=== PATIENT | female | born 1985 | race Caucasian/White ===

== ENCOUNTER 2017-07-02 11:06 | Emergency (ER) | payer SELFPAY ==
[~2017-07-02] VITALS: Ht 165.1 cm; Wt 65.0 kg
[~2017-07-02 11:06] MED LIST: FOLI1TAB PO; VALP250S12 PO
[2017-07-02 11:14] VITALS: BP 164/87; PULSE 96; RESP 20; TEMP 98.3; O2SAT 99
[2017-07-02] MEDS ORDERED: VALP250S2 PO (11:23)
[2017-07-02] MEDS ORDERED: IBUP1TAB7 PO (11:29)
[2017-07-02] MEDS ORDERED: TRAM50 PO (11:29)
[2017-07-02] MEDS ORDERED: PERI0.126 SWISH-SPIT (11:29)
[2017-07-02] MEDS ORDERED: PENI500T PO (11:29)
--- NOTE | 2017-07-02 11:29 | PD ---
HPI Chief Complaint: Oral / Dental Pain or Problem Time Seen by Provider: 11:18 Travel History International Travel<30 days: No Contact w/Intl Traveler<30days: No Traveled to known affect area: No History of Present Illness HPI 32-year-old female presents emergency department for evaluation of tooth pain associated with her right mandibular third molar. Pain is severe, constant, throbbing. Patient has had a large dental carry in this area for many years, and has gotten larger. There is swelling around the tooth and it is painful. She believes she has an abscess which she has had in the past. Denies any trauma. No fever or chills. She has no other symptoms to report. PFSH Past Medical History Cancer: No Cardiovascular Problems: No Diminished Hearing: No Endocrine: No Genitourinary: No Immune Disorder: No Musculoskeletal: No Neurologic: No Psychiatric: No Reproductive: No Seizures: Yes Tetanus Vaccination: < 5 Years ?: Not Menopausal: No Past Surgical History Cholecystectomy: Yes Neurologic Surgery: Yes (CYSYTS REMOVED) Social History Alcohol Use: No Tobacco Use: No Substance Use: No Allergies-Medications (Allergen,Severity, Reaction): Coded Allergies: grass pollen (Unverified Allergy, Severe, SNEEZING, EYES WATER, THROAT SWELLS, 07/02/17) house dust (Unverified Allergy, Severe, SNEEZING, EYES WATER, THROAT SWELLS, 07/02/17) tetracaine (Unverified Allergy, Intermediate, Rash, 07/02/17) corn (Unverified Allergy, Mild, RASH, 07/02/17) tomato (Unverified Allergy, Mild, COLD SORES IN MOUTH, RASH, 07/02/17) Reported Meds & Prescriptions Reported Meds & Active Scripts Active Ultram (Tramadol HCl) 50 Mg Tab 50 Mg PO Q8H PRN Ibuprofen 800 Mg Tab 800 Mg PO Q8H PRN Peridex Liq (Chlorhexidine Gluconate (Mouth) Liq) 0.12% Soln 15 Ml SWISH-SPIT BID Penicillin V Potassium 500 Mg Tab 500 Mg PO Q8H 10 Days Reported Valproic Acid Liq 250 Mg/5 Ml Syp 15 Ml PO BID Review of Systems Except as stated in HPI: all other systems reviewed are Neg Physical Exam Narrative GENERAL: Well-nourished, female patient in no acute distress SKIN: Focused skin assessment warm/dry. HEAD: Normocephalic. No erythema or edema EYES: No scleral icterus. No injection or drainage. DENTAL: No loose or chipped teeth. Generalized poor dentition. There is a large dental care in the right mandibular third molar with associated gingival erythema and edema. No appreciable abscess. No malocclusion. NECK: Supple, trachea midline. No JVD or lymphadenopathy. CARDIOVASCULAR: Regular rate and rhythm without murmurs, gallops, or rubs. RESPIRATORY: Breath sounds equal bilaterally. No accessory muscle use. Data Data Last Documented VS Vital Signs Date Time Temp Pulse Resp B/P (MAP) Pulse Ox O2 Delivery O2 Flow Rate FiO2 07/02/17 11:14 98.3 96 20 164/87 (112) 99 Orders Orders Ed Discharge Order (07/02/17 11:29) MDM Medical Decision Making Medical Screen Exam Complete: Yes Emergency Medical Condition: Yes Medical Record Reviewed: Yes Differential Diagnosis Dental caries versus dental abscess versus gingivitis versus pulpitis versus periodontal disease Narrative Course 32-year-old female presents emergency department for evaluation of dental pain. Patient does have a large dental carry with associated gingival erythema and edema. She will be provided pain control, oral Peridex, and antibiotic. I have encouraged follow-up with a dentist. She agrees to return immediately with acute worsening symptoms. Diagnosis Primary Impression: Dentalgia Additional Impressions: Dental caries Gingivitis Referrals: Dentist Primary Care Physician Patient Instructions: Dental Caries (ED), General Instructions Additional Instructions: Follow-up with a dentist Return immediately with acute worsening of symptoms Med/Other Pt SpecificInfo: Prescription(s) given Scripts Tramadol (Ultram) 50 Mg Tab 50 MG PO Q8H Y for PAIN GREATER THAN 5, #12 TAB 0 Refills Prov: Mari Oneill 07/02/17 Ibuprofen (Ibuprofen) 800 Mg Tab 800 MG PO Q8H Y for Pain/Inflammation, #30 TAB 0 Refills Prov: Mari Oneill 07/02/17 Chlorhexidine Gluconate (Mouth) Liq (Peridex Liq) 0.12% Soln 15 ML SWISH-SPIT BID, #473 ML 0 Refills Prov: Mari Oneill 07/02/17 Penicillin V Potassium (Penicillin V Potassium) 500 Mg Tab 500 MG PO Q8H for Infection for 10 Days, #30 TAB 0 Refills Prov: Mari Oneill 07/02/17 Disposition: 01 DISCHARGE HOME Condition: Stable Mari Oneill July 02, 2017 11:29
== END 2017-07-02 11:42 | disposition home or self-care (01) ==
LOC: NEPK 11:06
DX: K08.89 Other specified disorders of teeth and supporting structures (principal); K02.9 Dental caries, unspecified; K05.10 Chronic gingivitis, plaque induced
CPT/HCPCS: 99283